=== PATIENT | male | born 1990 | race Hispanic/Latino ===

== ENCOUNTER 2022-09-05 16:17 | Emergency (ER) | payer MEDICAID, OTHER ==
[~2022-09-05] VITALS: Ht 175.3 cm; Wt 68.0 kg
[2022-09-05 16:30] VITALS: BP 102/45
== END 2022-09-05 17:00 | disposition left against medical advice (07) ==
LOC: EDH 16:17
DX: R53.1 Weakness (principal); Z20.822 Contact with and (suspected) exposure to COVID-19
CPT/HCPCS: 99281